=== PATIENT | female | born 1990 | race Caucasian/White ===

== ENCOUNTER 2021-11-12 11:17 | Outpatient (CLI) | payer BC, SELFPAY | END 2021-11-12 11:18 | disposition home or self-care (01) | LOC: CHSOUTPT 11:24 | PROVIDERS: PCP Physician Assistant; Visit Provider Specialist | DX: D23.61 Other benign neoplasm of skin of right upper limb, including shoulder (principal) | CPT/HCPCS: 88305; 88342 ==

== ENCOUNTER 2022-02-11 09:40 | Emergency (ER) | payer BC, SELFPAY ==
--- NOTE | ~2022-02-11 | US_ITS ---
EXAMINATION: US pelvic complete w TV DATE: 02/11/2022 11:00 INDICATION: Pelvic pain. History of ovarian cyst. Comparison:Pelvic pain. History of ovarian cyst. TECHNIQUE: Multiple transabdominal and endovaginal sonographic images of the pelvis performed. FINDINGS: The uterus measures 8 x 3.9 x 4.5 cm. There is a echogenic mass in the endometrium with int ernal vascularity measuring 1.3 x 0.8 x 1.1 cm, suspicious for polyp The. Malignancy is less favored given the patient's age. Endometrial complex measures 10 mm. The right ovary measures 2.7 x 2.7 x 3.5 cm and the left ovary measures 5.4 x 5 x 4 cm. There are sm all follicles in each ovary. There is a right ovarian cyst measuring 4.3 cm. Normal doppler signal in both ovaries. There is free fluid in the pelvis. There are no abnormal masses seen on either side. IMPRESSION: 1. Echogenic endometrial mass measuring 1.3 x 1.1 x 0.8 cm, most likely endometrial polyp. Recommend follow-up clinical evaluation. 2: Left ovarian cyst measuring 4.3 cm. Reviewed, dictated and finalized at location A. IMPRESSION: 1. Echogenic endometrial mass measuring 1.3 x 1.1 x 0.8 cm, most likely endomet rial polyp. Recommend follow-up clinical evaluation. 2: Left ovarian cyst measuring 4.3 cm.
--- NOTE | 2022-02-11 09:44 | ED.ABDPAIN ---
HPI - Abdominal Pain General Chief Complaint: Abdominal Pain Stated Complaint: abd pain/hx of ovarian cyst Time Seen by Provider: 02/11/22 09:44 History of Present Illness HPI narrative: The patient is a 31-year-old female presenting to the emergency department for evaluation of lower pelvic pain over the past 12 hours. Patient states the pain began while she was having intercourse with her , reports aching pain in a bandlike pattern across her lower pelvis. Patient denies any vaginal bleeding or discharge. She reports that the pain is currently resolved but due to her symptoms, her ENTRY WRITER wanted her evaluated in the emergency department. Patient denies fever, chills, nausea, vomiting, dysuria or hematuria. She denies any upper abdominal pain. Patient reports history of ovarian cyst in the past, states that this has never been diagnosed by ultrasound though. Patient and spouse are currently trying to become , no known history of in the past. She is not on any fertility medication. She reports pain is dull, aching in nature mostly in the left lower quadrant without radiation to the flank. Related Data Home Medications Medication Instructions Recorded Confirmed prenat.vits,sravan,uty-rrgd-uosas 1 tablet PO DAILY 02/11/22 Allergies Allergy/AdvReac Type Severity Reaction Status Date / Time tizanidine AdvReac Other Verified 02/11/22 09:58 Review of Systems Review of Systems: CONSTITUTIONAL: Denies fever, chills, or sweats. ENT: Denies rhinorrhea, congestion, sore throat, or otalgia. CARDIOVASCULAR: Denies chest pain, palpitations, or edema. RESPIRATORY: Denies cough or dyspnea. GASTROINTESTINAL: Reports mild left lower quadrant lower pelvic pain without nausea, vomiting, or diarrhea. GENITOURINARY: Denies dysuria or hematuria. SKIN: Denies rash or itching. MUSCULOSKELETAL: Denies back pain, joint pain, or myalgia. NEUROLOGIC: Denies headache, numbness, or weakness. [facility] [place] Past Medical History Medical History (Updated 02/11/22 @ 12:23 by Celeste Garcia MD) Hypermobile joints Social History Social History (Updated 02/11/22 @ 10:49 by Celeste Garcia MD) Smoking status: Never smoker Alcohol intake: never Substance use: never Living arrangements: with family Gender identity (if verbalized by the patient): Female Exam Narrative: GENERAL: Awake, alert, conversant HEAD: Normocephalic, atraumatic. EYES: PERRLA and EOMI. ENT: Nares clear, no rhinorrhea or epistaxis. Mucous membranes moist. NECK: Supple. CHEST: No respiratory distress, breathing even and non labored HEART: Regular rate, sinus rhythm ABDOMEN:Non distended, mild tenderness in left lower quadrant and suprapubic area without rebound, rigidity or guarding. Negative McBurney's point tenderness, negative Itllman sign. EXTREMITIES: Normal range of motion. No edema. SKIN: Warm, dry, no rash. NEURO:No focal deficits. Alert and oriented x3 Course Vital Signs Vital signs: Vital Signs Temperature 36.9 C 02/11/22 09:54 Pulse Rate 104 H 02/11/22 09:54 Respiratory Rate 18 02/11/22 09:54 Blood Pressure 132/81 02/11/22 09:54 Pulse Oximetry 100 02/11/22 09:54 Oxygen Delivery Room Air 02/11/22 09:54 Temperature 36.9 C 02/11/22 09:54 Pulse Rate 104 H 02/11/22 09:54 Respiratory Rate 18 02/11/22 09:54 Blood Pressure 132/81 02/11/22 09:54 Pulse Oximetry 100 02/11/22 09:54 Oxygen Delivery Room Air 02/11/22 09:54 MDM - Abdominal Pain MDM Narrative Medical decision making narrative: Patient presenting for evaluation of lower abdominal pain after intercourse with reassuring physical exam and no significant pain at the time of assessment. Patient without vaginal bleeding, discharge or lower pelvic pain. No urinary symptoms. Laboratory work-up is reassuring. Imaging obtained and patient does have an echogenic ovarian mass which is likely a polyp per radiology report but given patient's
[2022-02-11 09:54] VITALS: BP 132/81; PULSE 104; RESP 18; TEMP 36.9; O2SAT 100
[2022-02-11 10:14] LABS: Add Urine Microscopic? YES; Appearance Urine Clear (Clear); Basophils Percent Auto 0.3 % (0.2-1.2); Bilirubin Urine Negative (Negative); Blood Urine Trace-Intact (Negative); Color Urine Yellow (Yellow); Eosinophils Absolute Auto 0.1 K/mm3 (0-0.3); Glucose Urine UA Negative (Negative); Hematocrit 40.8 % (37.0-47.0); Immature Granulocyte Absolute 0.01 K/mm3 (0.00-0.031); Immature Granulocyte Percent A 0.2 % (0-0.5); Ketones Urine Negative (Negative); Leukocyte Esterase Ur Negative LEU/UL (Negative); Lymphocytes Absolute Auto 1.64 K/mm3 (0.9-3.2); Lymphocytes Percent Auto 28.3 % (18.3-44.2); Mean Corpuscular HGB Conc 31.9 g/dl (32-36); Mean Corpuscular Hemoglobin 27.1 pg (26-34); Mean Corpuscular Volume 85.2 fl (80-100); Mean Platelet Volume 10.2 fl (7.4-10.4); Monocytes Absolute Auto 0.4 K/mm3 (0.1-0.6); Monocytes Percent Auto 6.2 % (2.6-8.5); Neutrophils Absolute Auto 3.7 K/mm3 (1.3-6.7); Nitrate Urine Negative (Negative); Platelet Count Result 206 k/mm3 (150-375); Protein Urine Negative (Negative); Red Blood Count 4.79 M/mm3 (4.2-5.4); Red Cell Distribution Width 12.6 % (11.5-14.5); Specific Grav Ur 1.025 (1.001-1.035); Urobilinogen Urine 0.2 mg/dL (<2.0); White Blood Count 5.8 K/mm3 (4.5-10.0)
[2022-02-11 10:18] LABS: Bacteria Urine Trace /hpf; Mucus Urine Rare /lpf; Squamous Epithelial Cell Urine Occasional /hpf (Few); WBC Urine 0-3 /hpf
[2022-02-11 10:29] LABS: Alanine Aminotransferase 20 U/L (6-35); Albumin Level 4.6 g/dL (3.5-5.1); Alkaline Phosphatase 33 U/L (38-126); Anion Gap 8 mmol/L (8-16); Aspartate Amino Transferase 26 U/L (14-36); Bilirubin,Total 0.6 mg/dL (0.2-1.3); Blood Urea Nitrogen 11 mg/dL (7-17); Calcium 8.4 mg/dL (8.4-10.2); Carbon Dioxide 25 mmol/L (22-30); Chloride 106 mmol/L (98-107); Estimated CRCL calculation 140 ml/min; Estimated Glomerular Filt Rate > 60; Glucose 106 mg/dL (65-110); Lipase 77 U/L (23-300); Potassium 4.1 mmol/L (3.4-5.0); Sodium 139 mmol/L (137-145)
[2022-02-11 12:33] VITALS: BP 106/65; PULSE 72; RESP 18; O2SAT 100
== END 2022-02-11 12:34 | disposition home or self-care (01) ==
PROVIDERS: Emergency Provider Emergency Medicine; PCP Physician Assistant
DX: R10.2 Pelvic and perineal pain (principal); N84.0 Polyp of corpus uteri; N83.202 Unspecified ovarian cyst, left side
CPT/HCPCS: 36415; 76830; 76856; 80053; 81001; 81025; 83690; 85025; 99284

== ENCOUNTER 2022-04-07 14:13 | Outpatient (CLI) | payer BC, SELFPAY ==
--- NOTE | ~2022-04-07 | US_ITS ---
EXAMINATION: US pelvic complete w TV DATE: 04/07/2022 15:16 INDICATION: 4.3 cm left ovarian cyst, possible endometrial polyp. TECHNIQUE: Multiple transabdominal and endovaginal sonographic images of the pelvis were obtained. COMPARISON: None. FINDINGS: The uterus measures 6.3 x 3.9 x 5.7 cm. The endometrial complex measures 11 mm in thickness. Again s een is a subtle approximately 10 x 9 x 7 mm lesion within the endometrial complex potentially an endo metrial polyp or submucosal fibroid. The right ovary measures 4.1 x 2.6 x 3.1 cm. The left ovary vilma ures 3.2 x 2.1 x 2.3 cm. There are a few subcentimeter anechoic cysts/follicles in the bilateral ovar ies. The prior larger left ovarian cyst has resolved. Vascular flow with arterial and venous waveform s identified in both ovaries on color Doppler. There is a trace amount of free fluid in the cul-de-sa c. IMPRESSION: 1. Persistent subtle 10 x 9 x 7 mm mass within and isoechoic to the surrounding endometrial complex w hich could represent an endometrial polyp or submucosal fibroid. Reviewed, dictated and finalized at location A. IMPRESSION: 1. Persistent subtle 10 x 9 x 7 mm mass within and isoechoic to the surrounding endometrial complex which could represent an endometrial polyp or submucosal f ibroid.
== END 2022-04-07 14:14 | disposition home or self-care (01) ==
PROVIDERS: PCP Physician Assistant; Visit Provider Obstetrics & Gynecology Gynecologic Oncology
DX: R93.5 Abnormal findings on diagnostic imaging of other abdominal regions, including retroperitoneum (principal); N83.209 Unspecified ovarian cyst, unspecified side
CPT/HCPCS: 76830; 76856

== ENCOUNTER → 2022-06-26 11:16 | Outpatient (CLI) | payer BC, SELFPAY ==
--- NOTE | ~2022-06-26 | CT_ITS ---
EXAMINATION: CT abdomen pelvis wo/w con DATE: 06/26/2022 12:01 INDICATION: Recurrent UTI TECHNIQUE: Computed tomography (CT) of the abdomen and pelvis was performed without and with 130 cc O mnipaque 350 intravenous contrast. The dose-length product was 941.60 mGy-cm. Automated exposure cont rol and iterative reconstruction technique were employed. COMPARISON: Ultrasound pelvis dated 04/07/2022 FINDINGS: lung bases are unremarkable. No significant pleural or pericardial effusion. Small amount o f free fluid in the pelvis. No renal stones. No hydronephrosis. Ureters are normal in course and radha mini. No stones are identified in the ureters. The liver, spleen, pancreas, adrenal glands and right kidney are unremarkable. There is a small subce ntimeter hypodensity of the left kidney, too small to characterize although statistically likely amaya gn. The bladder is unremarkable. Bilateral ureteral jets are noted. Nonobstructive bowel gas pattern. No significant pelvic masses. Small bone island in the left ischium. There is levoscoliosis. IMPRESSION: 1. No findings to account for patient's symptoms. No acute abdominal abnormality. Reviewed, dictated and finalized at location A. NILE DETENTION OFFICER IMPRESSION: 1. No findings to account for patient's symptoms. No acute abdominal abnormalit y.
[2022-06-26 11:41] LABS: Estimated Glomerular Filt Rate > 60
== END ==
PROVIDERS: PCP Physician Assistant; Visit Provider Physician Assistant
DX: N39.0 Urinary tract infection, site not specified (principal)
CPT/HCPCS: 74178; Q9967

== ENCOUNTER 2023-02-23 12:38 | Outpatient (CLI) | payer BC, SELFPAY ==
--- NOTE | ~2023-02-23 | US_ITS ---
EXAMINATION: US OB /maternal detail DATE: 02/23/2023 13:27 INDICATION: anatomic survey. TECHNIQUE: Real-time ultrasound of the pelvis was performed. COMPARISON: None. FINDINGS: There is a single living fetus in vertex presentation. The placenta is anterior, 2.2 cm from the cer vix. The cervical length is 3.8 cm on transabdominal images, which is normal. heart rate is 151 beats per minute (bpm). The amniotic fluid volume is subjectively normal. The following biometric data were obtained: Biparietal diameter (BPD): 4.8 cm; head circumference (HC): 18.6 cm; abdominal circumference (AC): 14 .7 cm; femur length (FL): 3.3 cm. These measurements are discordant with high HC/AC ratio. Estimated weight is 340 g +/- 51 g, which correlates with the 50th percentile when 07/12/23 is used as estimated date of delivery. As single measurements, these parameters are each equal to the following estimated gestational ages: BPD: 20 weeks 3 days. HC: 20 weeks 6 days. AC: 20 weeks 0 days. FL: 20 weeks 2 days. estimated gestational age based solely on measurements from this exam is 20 weeks 3 days +/- 1 weeks 3 days. The cerebral ventricles, cerebellum, cisterna magna, nuchal fold, lip, and visualized portions of the spine are normal. The heart is normal. The diaphragm, stomach, kidneys, and bladder are normal. Ther e are two umbilical arteries to yield a 3-vessel cord. The cord insertion is normal. IMPRESSION: 1. Single living fetus in vertex presentation. 2. Estimated weight is 340 g +/- 51 g, which correlates with the 50th percentile when 07/12/23 is used as estimated date of delivery. 3. Normal anatomic survey. 4. Discordant biometrics with high HC/AC ratio. Reviewed, dictated and finalized at location A. IMPRESSION: 1. Single living fetus in vertex presentation. 2. Estimated weight is 340 g +/- 51 g, which correlates with the 50th pe rcentile when 07/12/23 is used as estimated date of delivery. 3. Normal anatomic survey. 4. Discordant biometrics with high HC/AC ratio.
== END 2023-02-23 12:39 ==
LOC: MICIMG 12:43
PROVIDERS: PCP Obstetrics & Gynecology Gynecologic Oncology; Visit Provider Obstetrics & Gynecology Gynecologic Oncology
DX: Z36.9 Encounter for antenatal screening, unspecified (principal); Z3A.00 Weeks of gestation of pregnancy not specified; Z3A.20 20 weeks gestation of pregnancy
CPT/HCPCS: 76805

== ENCOUNTER 2023-11-19 11:00 | Outpatient (RCR) | payer BC, SELFPAY ==
--- NOTE | 2023-10-13 10:24 | OPREHPOC ---
Outpatient Therapy Plan of Care This is a Multidisciplinary Plan of Care that may contain components documented by all disciplines (PT, OT, and ST.) PT Problem 1 PT Problem #1 Knowledge Deficit PT Goal 1 Goal 1. Patient will perform independent HEP Target Visit 3 PT Problem 2 PT Problem #2 Pain PT Goal 1 Goal 1. Patient will report no pain with pelvic exam to allow for full tampon use, pap smear, etc. Target Visit 6 PT Goal 1 Goal 1. Improve pelvic floor strength to 4/5 to decrease stress incontinence
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
--- NOTE | 2023-11-12 11:48 | PCPTNOTE ---
Patient called to cancel appointment on 11/12/23 due to her back going out.
--- NOTE | 2023-12-24 13:31 | PTOPDC ---
Assessment and note entered by Hilary Cannon DPT Evaluation Information Assessment Status Discharge - Pt Not Present Subjective Information - Assessment PT Clinical Summary The patient has not attended therapy since 11/19/23 and has not returned voicemail to schedule further visits. She will be discharged this date and need a new script to resume in the future. Plan of Care PT Services Indicated No
== END 2023-12-24 14:16 | disposition home or self-care (01) ==
LOC: ANHPT 11:00
PROVIDERS: PCP Physician Assistant; Visit Provider Nurse Practitioner Women's Health
DX: N39.3 Stress incontinence (female) (male) (principal)
CPT/HCPCS: 97110; 97112; 97140; 97161; 97530

== ENCOUNTER 2023-12-11 00:12 | Day surgery (SDC) | payer BC, SELFPAY ==
[2023-12-04 08:55] VITALS: BMI 23.6
[2023-12-11 12:20] VITALS: BP 101/69; PULSE 93; RESP 20; TEMP 37.2; O2SAT 100; BMI 22.8
[2023-12-11] MEDS: LACTATED RINGERS 1,000 ML 150 ML IV CONT (12:28)
--- NOTE | 2023-12-11 12:31 | P.PNAN_ITS ---
Anes - Initial Pre Proc Eval Procedure: Operation Date: 12/11/23 13:00 Proposed Procedures p Colonoscopy - Michelet Power MD s [facility] Hemorrhoid Treatment - Michelet Power MD Date/Time: 12/11/23 12:31 Surgeon: Michelet Power MD Pre Op Diagnosis: anal fissure unspecified, hemorrhage of anus and r Patient Data Age: 33 Gender: F Height: 1.71 m Weight: 67.1 kg Last Vital Signs Temp 98.9 F 12/11/23 12:20 Pulse 93 12/11/23 12:20 Resp 20 12/11/23 12:20 BP 101/69 12/11/23 12:20 Pulse Ox 100 12/11/23 12:20 O2 Del Method Room Air 12/11/23 12:20 Allergies Allergy/AdvReac Type Severity Reaction Status Date / Time adhesive Allergy Intermediate CONTACT Verified 12/11/23 12:18 DERMATITIS ciprofloxacin Allergy Intermediate Hives Verified 12/11/23 12:18 tizanidine Allergy Intermediate Dizziness Verified 12/11/23 12:18 Home Medications Medication Instructions Recorded Confirmed Type pharmacy compounding accessory See Rx Instructions miscellaneous 10/09/23 12/11/23 Rx .COMPLEX #1 ea rifaximin 550 mg tablet (Xifaxan) 550 mg PO TID 14 days #42 tabs 10/09/23 12/11/23 Rx Adults Multivitamin 1 tab-cap PO DAILY 12/04/23 12/11/23 History sertraline 100 mg tablet 100 mg PO HS 12/04/23 12/11/23 History Patient hx anesthesia problems: none Family hx anesthesia problems: none Results Review: All pre-operative results and documents have been reviewed as part of the pre- operative evaluation. [facility] Past Medical History Medical History Hypermobile joints Irritable bowel syndrome with diarrhea Ovarian cyst Social History Social History Smoking status: Never smoker Alcohol intake: current Substance use: never Substance use type: does not use Living arrangements: with family Gender identity (if verbalized by the patient): Female Spiritual care concerns: No Anes - Eval Final PreProcedure Day of Procedure 12/11/23 12:31 Patient weight: normal Heart: regular rate and rhythm Lungs: clear to auscultation Airway: Mallampati scale class II Neurological: alert and oriented Last oral intake: >/= 8 hours ASA classification: II Emergent: no Anesthetic plan: proceed Anesthesia type and monitoring: general GIVS and standard monitoring Results Review: All pre-operative results and documents have been reviewed as part of the pre- operative evaluation. Informed Consent: The patient's anesthetic plan and its attendant risks and benefits were discussed with the patient/family/POA. Questions were solicited and answers provided to the satisfaction of the patient/family/POA.
--- NOTE | 2023-12-11 13:04 | WPDHPUPDATE1 ---
History and Physical Update Update Date/Time: 12/11/23 13:04 History and Physical has been reviewed, including an updated exam of the patient. There are NO changes in the patient's condition. Risks, benefits, and alternatives have been discussed and questions answered. Patient agrees to proceed with procedure.
[2023-12-11 13:22] VITALS: BP 96/59; PULSE 78; RESP 21; O2SAT 100
[2023-12-11 13:32] VITALS: BP 86/48; PULSE 77; RESP 16; O2SAT 100
[2023-12-11 13:42] VITALS: BP 97/58; PULSE 61; RESP 28; O2SAT 98
== END 2023-12-11 13:48 | disposition home or self-care (01) ==
PROVIDERS: PCP Physician Assistant; Referring Provider Nurse Practitioner; Visit Provider Internal Medicine Gastroenterology
PROC: 0DJD8ZZ Inspection of Lower Intestinal Tract, Via Natural or Artificial Opening Endoscopic (ICD-10-PCS; CPT 45378; principal; 2023-12-11 13:00)
DX: K60.2 Anal fissure, unspecified (principal); K58.0 Irritable bowel syndrome with diarrhea
CPT/HCPCS: 45380; 88305; J2704; J7120